=== PATIENT | female | born 1955 | race African-American/Black ===

== ENCOUNTER 2017-10-11 19:57 | Emergency (ER) | payer MEDICARE ==
[~2017-10-11] VITALS: Ht 165.1 cm; Wt 59.0 kg
[~2017-10-11 19:57] MED LIST: DIAZ10TA4; ENAL5TAB; FURO-152 PO; GABA-290; INSHUMSS; LEVEMIR; LISI-653 PO; OMEP20CA10
[2017-10-11 22:09] LABS: BASOPHILS % 0.4 % (0.0-2.0); HEMATOCRIT. 33.7 % (36.0-48.0); HEMOGLOBIN. 11.2 g/dL (12.0-16.0); LYMPHOCYTES % 18.1 % (20.0-50.0); MEAN CORPUSCULAR HEMOGLOBIN 28.7 pg (28.0-32.0); MEAN CORPUSCULAR VOLUME 86.5 fL (81.0-99.0); MEAN PLATELET VOLUME 8.4 fl (7.4-10.4); MONOCYTES % 6.1 % (2.0-8.0); NEUTROPHILS % 74.4 % (40.0-76.0); PLATELET 241 x1000/uL (130-400); RED BLOOD CELL COUNT 3.89 mill/uL (4.2-5.4)
[2017-10-11 22:12] LABS: CHLORIDE 106 mEq/L (98-107)
[2017-10-11 22:16] LABS: PARTIAL THROMBOPLASTIN TIME 23.8 sec (23.4-31.0)
[2017-10-11 23:37] VITALS: BP 136/76
== END 2017-10-12 00:19 | disposition home or self-care (01) ==
LOC: ER 20:02
DX: R53.1 Weakness (principal); E11.9 Type 2 diabetes mellitus without complications; I10 Essential (primary) hypertension; F17.200 Nicotine dependence, unspecified, uncomplicated; Z90.49 Acquired absence of other specified parts of digestive tract
CPT/HCPCS: 36415; 71045; 80053; 83690; 84484; 85025; 85610; 85730; 93005; 99285

== ENCOUNTER → 2018-11-11 | Day surgery (SDC) | payer MEDICARE, MEDICAID ==
[~2018-11-11] VITALS: Ht 167.6 cm; Wt 57.6 kg
[~2018-11-11] MED LIST changes: +BACITRACIN 50,000 UNITS/VIAL ONE; +BETAMETHASONE ACET/BETAMET 30 MG/5 ML VIAL IM ONE; +BUPIVACAINE HCL/PF 0.25% (2.5MG/ML) 10ML ONE; +BUPIVACAINE HCL/PF 0.5% (5MG/ML) 10ML ONE; -GABA-290; +GABA-290 PO; +HYDROMORPHONE HCL/PF 2MG/ML CPJ IV PRN; +INSU100I19 SQ; -LEVEMIR; +LEVEMIR SUBCUT; +LIDOCAINE HCL 1% 20ML VIAL (Pyxis) INJ ONE; +NORMAL SALINE 0.9% 10 ML SYR ONE; -OMEP20CA10; +OMEP20CA5 PO; +SODIUM CHLORIDE 0.9% 1,000 ML IV SCH
== END | disposition home or self-care (01) ==
LOC: OR 05:59
PROVIDERS: ATTEND Podiatrist Foot & Ankle Surgery
DX: M20.22 Hallux rigidus, left foot (principal); E11.40 Type 2 diabetes mellitus with diabetic neuropathy, unspecified; Z98.890 Other specified postprocedural states; Z79.899 Other long term (current) drug therapy; Z79.84 Long term (current) use of oral hypoglycemic drugs; Z79.4 Long term (current) use of insulin; Z80.8 Family history of malignant neoplasm of other organs or systems
CPT/HCPCS: 28289; 82962; J0702; J3490